=== PATIENT | female | born 2005 | race Caucasian/White ===

== ENCOUNTER 2024-08-25 06:33 | Outpatient (CLI) | payer OTHER ==
[2024-08-25] MEDS ORDERED: iohexol 300 MG/1 ML 50ml polymer ONE (06:37)
[2024-08-25] MEDS ORDERED: LIDOcaine 1% 30ml preserv. free vial ONE (06:37)
[2024-08-25] MEDS ORDERED: LIDOcaine 1%/PF 5ML 10 MG/ML VIAL ONE (06:37)
[2024-08-25] MEDS ORDERED: GADOTERATE MEGLUMINE 7.5 MMOL/15 ML VIAL IV ONE (06:37)
== END 2024-08-25 23:59 | disposition home or self-care (01) ==
LOC: RAD 06:33
PROVIDERS: ATTEND Family Medicine Sports Medicine
DX: S73.192A Other sprain of left hip, initial encounter (principal); M25.552 Pain in left hip; X58.XXXA Exposure to other specified factors, initial encounter; Y93.89 Activity, other specified; Y92.89 Other specified places as the place of occurrence of the external cause; Y99.8 Other external cause status
CPT/HCPCS: 27093; 73722; 77002; A9575; J2003; J3490; Q9967; 73525